=== PATIENT | female | born 1960 | race Two or more races ===

== ENCOUNTER 2024-12-25 13:16 | Emergency (ER) | payer OTHER ==
[~2024-12-25] VITALS: Ht 165.1 cm; Wt 56.7 kg
[2024-12-25] MEDS ORDERED: AMLODIPINE-OLM1 EAC2 (14:41)
[2024-12-25] MEDS ORDERED: EVENITY (2210 MG/2.3 (14:42)
[2024-12-25] MEDS ORDERED: HYZAAR 50-12.51 EACH (14:42)
[2024-12-25] MEDS ORDERED: MORPHINE SULFATE 4 MG/ML VIAL IV ONE (15:15)
[2024-12-25] MEDS ORDERED: 0.9 % SODIUM CHLORIDE 1,000 ML IV SCH (15:15)
[2024-12-25 15:43] LABS: HEMATOCRIT 40.4 % (36.0-45.00); HEMOGLOBIN 13.6 g/dL (12.0-15.00); MEAN CELL VOLUME 78.1 fL (80.00-100.00); MEAN CORPUSCULAR HEMOGLOBIN 26.3 pg (27.00-32.0); MEAN CORPUSCULAR HGB CONC 33.6 g/dl (32.0-36.0); PLATELET COUNT 280 K/uL (150-450); RED BLOOD COUNT 5.18 M/uL (4.00-6.00); RED CELL DISTRIBUTION WIDTH 13.6 % (11.5-14.5)
[2024-12-25 15:51] LABS: PH,URINE 5.5 (5.0-8.0); URINE APPEARANCE Clear; URINE BILIRRUBIN Negative (NEGATIVE); URINE BLOOD Moderate; URINE COLOR Yellow; URINE GLUCOSE Negative (NEGATIVE); URINE KETONE Negative (NEGATIVE); URINE LEUKOCYTE Trace; URINE NITRATE Negative; URINE PROTEIN Trace (NEGATIVE); URINE UROBILINOGEN 0.2 E.U./dl
[2024-12-25 15:55] LABS: URINE BACTERIA 347.5 uL (0.0-1933); URINE EPITHELIAL CELLS 8.8 uL (0.0-38.8); URINE RBC 332.1 uL (0.0-20.8)
[2024-12-25 15:57] LABS: URINE CAST 0.14 uL (0.0-1.40)
[2024-12-25 16:04] LABS: CALCIUM 8.9 mg/dL (8.5-10.1); CREATININE SERUM 0.58 mg/dL (0.55-1.02); GFR 104.33; POTASSIUM 3.65 mEq/L (3.5-5.1)
[2024-12-25] MEDS ORDERED: KETO10TA2 PO (19:18)
[2024-12-25] MEDS ORDERED: CEPHALEXIN500 M1 PO (19:18)
[2024-12-25] MEDS ORDERED: TAMS0.4C PO (19:18)
[2024-12-25] MEDS ORDERED: TAMSULOSIN HCL 0.4 MG CAP PO ONE (19:30)
[2024-12-25] MEDS ORDERED: KETOROLAC TROMETHAMINE 30 MG VIAL IV ONE (19:30)
== END 2024-12-25 19:34 | disposition home or self-care (01) ==
LOC: ER 13:18
PROVIDERS: Emergency Medicine
DX: N20.1 Calculus of ureter (principal); R10.9 Unspecified abdominal pain; R10.2 Pelvic and perineal pain; I10 Essential (primary) hypertension
CPT/HCPCS: 36415; 74177; 96365; 96366; 99284; J1885; J7030; Q9965